=== PATIENT | female | born 1970 | race Two or more races ===

== ENCOUNTER 2018-11-03 07:13 | Outpatient (CLI) | payer OTHER | END 2018-11-03 07:41 | disposition home or self-care (01) | LOC: NUCLEAR 07:13 | DX: I27.21 Secondary pulmonary arterial hypertension (principal); R06.09 Other forms of dyspnea; R94.31 Abnormal electrocardiogram [ECG] [EKG]; I31.1 Chronic constrictive pericarditis ==